=== PATIENT | male | born 1940 | race Caucasian/White ===

== ENCOUNTER 2016-08-31 11:51 | Day surgery (SDC) | payer MEDICARE, BC ==
[~2016-08-31] VITALS: Ht 180.3 cm; Wt 116.9 kg
[~2016-08-31 11:51] MED LIST: ALLO100T PO; ASPI81CH37 CHEW; DIOV40TA PO; HYDR-3516 PO; METF1000 PO; NORV2.5T PO; PLAV75TA29 PO; ROSU20 PO; SPIR25 PO
[2016-08-31] MEDS ORDERED: LORazepam 1 MG TAB SL SCH (12:30)
[2016-08-31] MEDS ORDERED: LACTATED RINGER'S 1000 ML IV PRN (12:30)
[2016-08-31] MEDS ORDERED: ceFAZolin 2 GM PREMIX 50 ML IV SCH (12:30)
[2016-08-31] MEDS ORDERED: MUPIROCIN 2% OINT 1 APPLIC/GM SYR NASAL SCH (12:30)
[2016-08-31] MEDS ORDERED: POVIDONE IODINE 5% (ANTISEPSIS KIT) 4 APPLICATIONS EACH NARE PRN (12:30)
[2016-08-31] MEDS ORDERED: SODIUM CHLORID 0.9% 500 ML INJ 500 ML IV SCH (12:30)
[2016-08-31] MEDS ORDERED: CHLORHEXIDINE GLUCONATE 2 % 1 PACK (2 CLOTHS) TOPICAL SCH (12:30)
[2016-08-31] MEDS ORDERED: NO Heparin, Lovenox, Coumadin at least 12 hours prior to procedure. PRN (12:30)
[2016-08-31] MEDS ORDERED: CHLORHEXIDINE GLUCONATE 2 % 1 PACK (2 CLOTHS) TOPICAL PRN (12:30)
[2016-08-31] MEDS ORDERED: INSULIN HUMAN REGULAR 1,000 UNITS/10 ML VIAL SQ PRN (12:30)
[2016-08-31] MEDS ORDERED: NS 1000 ML IV SCH (12:30)
[2016-08-31] MEDS ORDERED: METOPROLOL TARTRATE 25 MG TAB PO PRN (12:30)
[2016-08-31] MEDS ORDERED: POVIDONE IODINE 5% (ANTISEPSIS KIT) 4 APPLICATIONS EACH NARE SCH (12:30)
[2016-08-31] MEDS ORDERED: Hold AM Insulin & AM Hypoglycemic medications in diabetic patients PRN (12:30)
[2016-08-31] MEDS ORDERED: SODIUM CHLORID 0.9% 500 ML IV PRN (12:30)
[2016-08-31 12:52] VITALS: BP 143/68; PULSE 50; RESP 18; TEMP 98.3; O2SAT 94
[2016-08-31 12:54] LABS: AUTOMATED NEUTROPHIL # 3.8 TH/MM3 (1.8-7.7); BASOPHIL # 0.1 TH/MM3 (0-0.2); BASOPHIL % 1.1 % (0.0-2.0); EOSINOPHIL # 0.1 TH/MM3 (0-0.4); EOSINOPHIL % 2.2 % (0.0-4.0); HEMATOCRIT 36.5 % (39.0-51.0); HEMO FLAGS DIFF FINAL; LYMPH % 29.9 % (9.0-44.0); MEAN CELL VOLUME 88.7 FL (80.0-100.0); MEAN CORPUSCULAR HEMOGLOBIN 30.1 PG (27.0-34.0); MEAN CORPUSCULAR HGB CONC 33.9 % (32.0-36.0); MONO % 9.8 % (0.0-8.0); PLATELET COUNT 224 TH/MM3 (150-450); RED BLOOD COUNT 4.11 MIL/MM3 (4.50-5.90); RED CELL DISTRIBUTION WIDTH 13.6 % (11.6-17.2); WHITE BLOOD COUNT 6.7 TH/MM3 (4.0-11.0)
[2016-08-31 13:03] LABS: APTT (PATIENT) 23.1 SEC (24.3-30.1); PROTHROMBIN TIME - PATIENT 10.5 SEC (9.8-11.6)
[2016-08-31] MEDS ORDERED: ESCI10TA PO (13:06)
[2016-08-31] MEDS ORDERED: ANAS1 PO (13:06)
[2016-08-31 13:15] LABS: BICARBONATE 25.7 MEQ/L (21.0-32.0)
[2016-08-31] MEDS ORDERED: PROPOFOL 200 MG/20 ML AMP IV ONE (16:36)
[2016-08-31] MEDS ORDERED: ISOPROTERENOL HCL 1 MG/5 ML AMP ONE (16:39)
[2016-08-31] MEDS ORDERED: ONDANSETRON HCL 4 MG/2 ML VIAL IV PRN (17:30)
[2016-08-31] MEDS ORDERED: METOCLOPRAMIDE HCL 10 MG/2 ML VIAL IV PRN (17:30)
[2016-08-31] MEDS ORDERED: ATROPINE SULFATE 1 MG/ML VIAL IV PRN (17:30)
[2016-08-31] MEDS ORDERED: LORazepam 2 MG/ML VIAL IV PRN (17:30)
[2016-08-31] MEDS ORDERED: LIDOCAINE HCL 1% 50 ML VIAL INFIL PRN (17:30)
[2016-08-31] MEDS ORDERED: BACITRACIN OINT 0.9 GM PKT TOP ONE (17:30)
[2016-08-31] MEDS ORDERED: oxyCODONE/ACETAMINOPHEN 5 MG/325 MG TAB PO PRN ×2 (17:30)
[2016-08-31] MEDS ORDERED: SODIUM CHLOR 0.9% 250 ML INJ 250 ML IV PRN (17:30)
--- NOTE | 2016-08-31 17:38 | CATHPROC ---
Baidu HIS Report Study Information Study Number Admission Scheduled Start Study Start [id number] Aug 31 2016 11:51AM 08/31/2016 Aug 31 2016 4:12PM [place] Service Electrophysiology Study Admit Source Facility Department Emergency department [facility] - Front Line Supervisor Physician and Clinical Staff Initial Donavan Ontiveros Pattern Stamper Heaven Mast,FRICTION SAW OPERATOR TECH2 Other Anesthesia, FISH GRADER Recorder Bouchra Drake,RN Recorder Ginna Hinojosa RN Scrub Delano Curry,MOTOR WINDER(BS) Scrub Andreia Rodrgiuez,RT(R) TECH2 Equipment Time Proofer Prepress Description Size Mfg Part Number Used/Scraped [id number] 16:45 [employer], CCL CUSTOM * Used *[id number] 16:45 [employer] PACER [place], LIMB * 2530 *[id number] Used [id number] 16:45 [employer],WARM AIR CCL * Used *[id number] 16:50 [employer], JSN, QUAD FR 5 Used *[id number] 16:50 [employer], JSN, QUAD FR 5 Used *[id number] 16:50 [employer] CAT[employer], JSN, QUAD FR 5 Used *[id number] 16:50 [employer] CATHETER, JSN, QUAD FR 5 Used *[id number] 16:50 [employer] SHEATH, EPS, FR5 FAST CATH FR 5 Used *[id number] 16:50 [employer], EPS, FR5 FAST CATH FR 5 Used *[id number] 16:50 [employer], EPS, FR5 FAST CATH FR 5 Used *[id number] 16:50 [employer], EPS, FR6 FAST CATH FR 6 [id number] Used Medication Medication Total Dose (Bolus/Oral) Medication Total Dosage/Unit 2% XYLOCAINE 100 mL Medications (Bolus/Oral) Medication Time Given Dosage/Unit Administered By Reason 2% XYLOCAINE 08/31/2016 5:04:55 PM 50 mL Donavan Hoffman 50 mL 2% XYLOCAINE given in lab by Donavan Hoffman in Right Groin via Subcutaneous. 2% XYLOCAINE 08/31/2016 5:06:43 PM 50 mL Donavan Hoffman 50 mL 2% XYLOCAINE given in lab by Donavan Hoffman in Right Groin via Subcutaneous. Medication (Drip) Medication Time Given Dosage/Unit Concentration/Unit Diluent (ml) Solution ISUPREL 08/31/2016 5:17:35 PM 4 mcg/min 1 mg 250 NaCl .9 4 mcg/min ISUPREL given in lab by Donavan Hoffman via Peripheral IV. Pump/Drip Flow = 60 ml/hr using Na Cl .9 with a concentration of 1 mg in 250 ml. Initial Case Assessment Cardiovascular HR Rhythm NIBP Chest Pain 63 regular 178/71 0 Edema Present Skin color Skin None Normal Warm Dry Circulatory - Right Pulses Dorsalis Pedis Femoral 1 1 Scale (0,1,2,3,4,d) Circulatory - Left Pulses Dorsalis Pedis Femoral 1 1 Scale (0,1,2,3,4,d) Circulatory - Lower Extremities Color Lower Right Color Lower Left Normal Normal Neurological State Oriented to time-place- Alert Moves all extremities person Respiration - General Respiration Rate SpO2 (%) (B/min) 16 100 Final Case Assessment Cardiovascular HR Rhythm NIBP Chest Pain 82 82 134/58 0 Edema Present Skin color Skin None Normal Warm Dry Circulatory - Right Pulses Dorsalis Pedis 1 Scale (0,1,2,3,4,d) Circulatory - Left Pulses Dorsalis Pedis 1 Scale (0,1,2,3,4,d) Neurological State Oriented to time-place- Alert Moves all extremities person Respiration - General Respiration Rate SpO2 (%) (B/min) 18 100 Chronological Log Time Study Chronological Log 16:36:52 Patient arrived via Bed. 16:37:07 Patient Name, D.O.B, / Armband Verified By R.N. 16:37:08 Consent signed by the physician and the patient and verified by the Front Line Supervisor staff. 16:37:09 Pre-op and post- op instructions given; patient acknowledges understanding of instructions. 16:37:10 Verbal Stimulation=2 Physical Stimulation=2 Airway=2 Respiration=2 TOTAL=8. (0=absent, 1=li mited, 2=present) 16:38:22 Anesthesia at bedside. Zach Joseph CRNA Assumes care of patient. 16:38:50 Patient has been NPO for More than 6Hrs. 16:38:51 Skin Breakdown-none per pt 16:38:58 Patient Warmer Placed on the Table. 16:38:59 Disposable Defibrillator Pads Placed On Patient. 16:39:00 Alison Prominences Protected 16:39:04 A # 20 IV was noted in the Wrist (left). Grade = 0 0.9 NS at KVO infusing 16:39:24 A # 18 IV was noted in the Antecubital (right). Grade = 0 0.9NS at KVO infusing 16:39:49 History and physical on the chart or being dictated. Assessment: Initial Case, HR=63 BPM, Rhythm=regular, UUBY=227/71 mmhg, Chest Pain=0, Edema=None , Color=Normal, Skin = Warm, Dry Right Pulses: [place] Ped=1, Femoral=1 Left Pulses: [place] Ped=1, Femoral=1 16:39:51 Lower Right Extremities: Color=Normal Lower Left Extremities: Color=Normal Neurological: State=Alert, Ox3, LUO Respiration: Resp=16 B/min, XyE3=784 % 16:39:52 Table restraints applied according to hospital policy 16:48:02 Reference ECG taken Time Out #2 - Consents verified, patient in correct position, all results are labled and displa yed, safety precautions 17:02:15 taken, antibiotics administered. Time out concurred by MD, individual staff and FISH GRADER in procedu re Time Out. Correct patient, procedure, procedure equipment, site and side verified with physicia n present. Time 17:02:20 concurred by MD, individual staff and FISH GRADER. 17:03:43 Case Start 17:04:55 50 mL 2% XYLOCAINE given in lab by Donavan Hoffman in Right Groin via Subcutaneous. 17:06:43 50 mL 2% XYLOCAINE given in lab by Donavan Hoffman in Right Groin via Subcutaneous. 17:06:58 Vascular access was obtained in the Groin (right). 17:07:55 Vascular access was obtained in the Groin (right). 17:07:55 Vascular access was obtained in the Groin (right). 17:07:55 Vascular access was obtained in the Groin (right). 17:08:07 A SHEATH, EPS, FR5 FAST CATH FR 5 was advanced into the Groin (right) using the Modified Se ldinger technique. 17:08:23 A SHEATH, EPS, FR5 FAST CATH FR 5 was advanced into the Groin (right) using the Modified Se ldinger technique. 17:08:27 A SHEATH, EPS, FR5 FAST CATH FR 5 was advanced into the Groin (right) using the Modified Se ldinger technique. 17:08:30 A SHEATH, EPS, FR6 FAST CATH FR 6 was advanced into the Groin (right) using the Modified Se ldinger technique. A CATHETER, JSN, QUAD FR 5 was advanced vis Fem Vein (right) and placed in the CS. Placement wa s visually 17:08:53 confirmed under fluoroscopy. A CATHETER, JSN, QUAD FR 5 was advanced vis Fem Vein (right) and placed in the HIS. Placement w as visually 17:09:00 confirmed under fluoroscopy. A CATHETER, JSN, QUAD FR 5 was advanced vis Fem Vein (right) and placed in the HRA. Placement w as visually 17:09:05 confirmed under fluoroscopy. A CATHETER, JSN, QUAD FR 5 was advanced vis Fem Vein (right) and placed in the RVA. Placement w as visually 17:09:12 confirmed under fluoroscopy. 17:09:45 EP study in progress 4 mcg/min ISUPREL given in lab by Donavan Hoffman via Peripheral IV. Pump/Drip Flow = 60 ml/hr us ing NaCl .9 with a 17:17:35 concentration of 1 mg in 250 ml. 17:26:22 DC ISUPREL 17:27:27 Case End 17:29:42 Catheter(s) removed without difficulty Assessment: Final Case, HR=82 BPM, Rhythm=82, LWOO=142/58 mmhg, Chest Pain=0, Edema=None, Color =Normal, Skin = Warm, Dry Right Pulses: [place] Ped=1 17:29:46 Left Pulses: [place] Ped=1 Neurological: State=Alert, Ox3, LUO Respiration: Resp=18 B/min, CuB9=238 % 17:36:09 Sterile dressing applied to site 17:36:10 No case complications noted. 17:36:11 Cine recording checked. 17:36:14 Bedside Report will be given. 17:36:19 DOCU called. Spoke to WILBER 17:36:27 Defibrillator and ground pads removed. Skin intact. 17:49:[facility] - [facility] Media Used In Study Contrast Total Opened (mL) Total Used (mL) Total Wasted (mL) Unspecified 0 0 0 End Study - Radiation Exposure Fluoro Time (minutes) 2.2 End Study - Patient Disposition Complications Transferred To Interventional Outcome No Telemetry Bed successful
--- NOTE | 2016-09-01 11:44 | EKG ---
Date Performed: 08/31/2016 Time Performed: 13:08:38 PTAGE: 76 years EKG: Sinus bradycardia. Indeterminate axis Right bundle branch block Low QRS voltages in precord ial leads Since previous tracing, no significant change noted Abnormal ECG PREVIOUS TRACING : 01/26/2016 11.43 DOCTOR: Keith Lowery Interpretating Date/Time 09/01/2016 12:03:30
--- NOTE | 2016-09-18 22:24 | MR ---
cc: AHSAN MICHELLE M.D. DATE: 08/31/2016 PROCEDURES PERFORMED: 1. Electrophysiology study. 2. CS cannulation. 3. Repeat electrophysiology study. 4. Isuprel infusion. INDICATIONS FOR PROCEDURE: Mr. Samaniego is a 76 year-old gentleman, trifascicular block, episode of dizziness, referred for electrophysiology study and possible device insertion. The risks, the nature and the benefits of the procedure were clearly stated to him. Risks include pneumothorax, cardiac perforation, stroke, need for open heart surgery and even . The patient understood and agreed to proceed. DESCRIPTION OF THE PROCEDURE: After written informed consent was obtained, the patient was brought to the EP Lab where he was prepped and draped in the usual sterile fashion. Conscious sedation was initiated and maintained throughout the procedure by the anesthesiologist. Once sedation was verified, the right inguinal areas was anesthetized with 2% Xylocaine. Using modified Seldinger technique, the right femoral vein was cannulated on four occasions, four guide wires were advanced. Over the wire, 3-5 6-[place] were advanced. Then under fluoroscopic guidance through the 5 [place], 4-5 [place] curved quadripolar electrophysiology catheters were advanced and placed along the His, atrium coronary sinus and right ventricular apex. Basic interval was measured. They were within normal limits. At this point atrial pacing protocol was performed, atrial pacing protocol course consisted of incremental atrial pacing as well as program stimulation with 110 cycle length and up to one excess stimuli delivered. No tachyarrhythmia was induced. Then ventricular pacing protocol was performed. There was VA conduction. No tachyarrhythmia was induced. Then Isuprel infusion was initiated. Atrial and ventricular pacing protocol was repeated again, no tachyarrhythmia was induced. At that point procedure was complete. All catheters were removed. The patient is going to be transferred to the recovery room. No incident report. The patient tolerated the procedure. Blood loss minimal. At baseline the patient was in sinus, postprocedure electrocardiogram was unchanged. Basic interval base cycle length was around 1200 milliseconds, AH at 100 and HV at 56 milliseconds. Atrial pacing protocol Wenckebach of the node was around 430 milliseconds. No tachyarrhythmia was induced. At ventricular pacing protocol there was VA conduction. No tachyarrhythmia was induced. CONCLUSION Negative electrophysiology study for supraventricular tachyarrhythmia. COMMENT AND RECOMMENDATIONS The patient has good AV node conduction. HV is normal. No need for pacing support at this point. If the patient has another episode of dizziness, then I will insert loop recorder. The case will be discussed with the patient. MD YA Toribio/ATIF /4:40 PM /8:56 PM
== END 2016-08-31 20:05 | disposition home or self-care (01) ==
LOC: HDOC 11:51 → HDIC 11:52 → HDOC 20:05
PROVIDERS: ATTEND Internal Medicine Interventional Cardiology
DX: I45.2 Bifascicular block (principal); R00.1 Bradycardia, unspecified; I48.91 Unspecified atrial fibrillation; I42.9 Cardiomyopathy, unspecified; I34.1 Nonrheumatic mitral (valve) prolapse; I25.10 Atherosclerotic heart disease of native coronary artery without angina pectoris; R55 Syncope and collapse; I10 Essential (primary) hypertension; Z01.810 Encounter for preprocedural cardiovascular examination; Z01.818 Encounter for other preprocedural examination
CPT/HCPCS: 00537; 80048; 85025; 85610; 85730; 86850; 86900; 86901; 93005; 93620; 93623; C1730